=== PATIENT | male | born 1975 | race Caucasian/White ===

== ENCOUNTER 2017-12-01 09:56 | Outpatient (CLI) | payer OTHER ==
--- NOTE | 2017-12-01 11:30 | XRAY Report ---
ESOPHAGRAM: 12/01/2017 CLINICAL INDICATION: Dysphagia. FINDINGS: Esophagram was performed in the upright and prone positions. The esophagus is normal in caliber. No esophageal ulceration, mass lesion, or stricturing is seen. The hypopharynx appears unremarkable. There is a small sliding hiatal hernia present, which produced reflux during the course of the examination. A 13 mm barium pill passed freely through the esophagus and into the stomach. IMPRESSION: SMALL SLIDING HIATAL HERNIA, PRODUCING REFLUX. NO EVIDENCE OF ULCER OR MASS LESION. FLUOROSCOPY TIME: 1 minute 39 seconds; 17 spot images obtained. TD: 12/01/2017 11:30
== END 2017-12-01 09:57 | disposition home or self-care (01) ==
LOC: DI 09:56
PROVIDERS: ATTEND Internal Medicine
DX: K44.9 Diaphragmatic hernia without obstruction or gangrene (principal); K21.9 Gastro-esophageal reflux disease without esophagitis
CPT/HCPCS: 74220